=== PATIENT | male | born 1955 | race Caucasian/White ===

== ENCOUNTER 2018-08-12 20:28 | Observation (INO) ==
[2018-08-12] MEDS ORDERED: ASPIRIN PR ONE (21:10)
[2018-08-12] MEDS ORDERED: ASPIRIN PO ONE (21:10)
[2018-08-12 21:21] LABS: BASO# 0.06 X1000 (0.0-0.2); BASO% 0.5 % (0.0-0.8); EOS# 0.25 X1000 (0.0-0.7); EOS% 2.1 % (0.0-10.0); HEMATOCRIT 36.3 % (42.0-52.0); HEMOGLOBIN 11.7 g/dL (14.0-18.0); IMM GRAN# 0.07 X1000 (0.0-0.04); IMM GRAN% 0.6 % (0.0-0.5); LYMPH# 3.52 X1000 (1.2-3.4); LYMPH% 29.4 % (20.5-51.1); MCH 28.3 PG (27-31); MCHC 32.2 g/dL (33-37); MCV 87.9 FL (81-99); MONO# 0.81 X1000 (0.11-0.59); MONO% 6.8 % (1.7-9.3); MPV 10.5 FL (7.4-10.4); NEUT# 7.28 X1000 (1.4-6.5); NEUT% 60.6 % (42.2-75.2); PLT 244 X1000 (130-400); RBC 4.13 XMIL (4.7-6.1); RDW 14.8 % (11.5-14.5); WBC 11.99 X1000 (4.8-10.8)
[2018-08-12 21:29] LABS: INR 1.02; PROTIME 14.2 Seconds (11.0-16.0)
[2018-08-12 21:30] LABS: PTT 30.6 Seconds (22.3-41.8)
--- NOTE | 2018-08-12 21:36 | Diag Imaging Result Doc PS360 ---
CHEST-2 VIEWS - 08/12/2018 INDICATION: chest pain COMPARISON: 09/09/2015 FINDINGS: There is some stable linear atelectasis in one of the lung bases visible only on the lateral view. No infiltrates or edema. Heart size is normal. IMPRESSION: Linear atelectasis in the lung bases. No acute disease. Electronically signed by Navdeep Prabhakar 08/12/2018 9:34 PM
[2018-08-12 21:41] LABS: AGAP 13; ALB/GLOB RATIO 1.5; ALBUMIN 3.8 g/dL (3.5-5.0); ALKALINE PHOSPHATASE 121 U/L (32-122); BUN 8 mg/dL (8-22); CALCIUM 8.6 mg/dL (8.8-10.2); CHLORIDE 102 mmol/L (98-107); COSMO 284; CREATININE 0.6 mg/dL (0.7-1.2); ESTIMATED GFR > 60; GLUCOSE 115 mg/dL (70-104); GOT 15 U/L (10-34); GPT 16 U/L (10-44); POTASSIUM 3.7 mmol/L (3.5-5.1); SODIUM 143 mmol/L (136-145); TCO2 28 mmol/L (25-35); TOTAL BILIRUBIN 0.28 mg/dL (0.20-1.00); TOTAL PROTEIN 6.3 g/dL (6.3-8.3)
[2018-08-13] MEDS ORDERED: NITROGLYCERIN SL PRN (00:38)
[2018-08-13] MEDS ORDERED: ZOFRAN IV PRN (00:38)
[2018-08-13] MEDS ORDERED: TYLENOL PO PRN (00:38)
[2018-08-13] MEDS ORDERED: COREG PO ONE (00:42)
[2018-08-13] MEDS ORDERED: PRINIVIL PO ONE (00:51)
[2018-08-13] MEDS ORDERED: SEROQUEL PO ONE (00:52)
[2018-08-13] MEDS ORDERED: LIPITOR PO ONE (00:52)
[2018-08-13] MEDS ORDERED: FLOMAX PO ONE (00:52)
--- NOTE | 2018-08-13 02:32 | HISTORY AND PHYSICAL ---
PRIMARY CARE PHYSICIAN: Dr. Palomo. CHIEF COMPLAINT: Chest pain. HISTORY OF PRESENTING ILLNESS: A 63-year-old male with a history of hypertension, diabetes mellitus type 2 and hyperlipidemia, who had presented to emergency department 2 days history of having intermittent chest pain. He described it as sharp and stated that he was somewhat nauseated. He states the symptoms were worsening and subsequently he had come to the emergency department. In the ED, he was evaluated and due to his presenting symptoms it was thought that he would need admission for further management. The patient states that he was supposed to have an outpatient stress test. At the time of my examination, he denied any headache, fever, chills, hemoptysis, melena, weight changes, but complained of chest discomfort. PAST MEDICAL HISTORY: Hypertension, hyperlipidemia, diabetes mellitus type 2, gout, BPH and depression. PAST SURGICAL HISTORY: Left knee surgery, cholecystectomy. ALLERGIES: No known drug allergies. CURRENT MEDICATIONS: Metformin 1000 mg p.o. daily, allopurinol 300 mg p.o. daily, Flomax 0.4 mg p.o. daily, lisinopril 20 mg p.o. daily, atorvastatin 40 mg p.o. daily, quetiapine 25 mg p.o. at bedtime Zoloft 50 mg p.o. daily, Lasix 20 mg p.o. daily, Coreg 25 mg p.o. b.i.d., isosorbide mononitrate ER 30 mg p.o. daily, KCl 10 mEq p.o. daily, famotidine 20 mg p.o. daily. SOCIAL HISTORY: No history of smoking, alcohol or illicit drug use. FAMILY HISTORY: No history of coronary artery disease. REVIEW OF SYSTEMS: Fourteen point review of systems as listed in HPI. Other systems negative. PHYSICAL EXAMINATION: GENERAL: Cooperative, friendly male. He is resting comfortably now. VITAL SIGNS: Temperature 98.4 degrees, pulse 70, respiration 19, blood pressure 142/73. HEENT: Atraumatic, normocephalic. Extraocular movements intact. PERRLA. NECK: Supple. CHEST: Chest clear to auscultation. CARDIOVASCULAR: Regular rate and rhythm. ABDOMEN: Soft, positive bowel sounds. EXTREMITIES: Trace edema. NEUROLOGIC: He is awake, alert, oriented x3. GENITOURINARY: No bladder distention. SKIN: Warm. LABORATORIES AND STUDIES: WBC 11.99, hemoglobin 11.7, hematocrit 36.3, platelets 244,000. Sodium 143, potassium 3.7, chloride 102, CO2 is 28, BUN is 8, creatinine 0.6, glucose is 115. Troponin is 0.010. ASSESSMENT: A 63-year-old male with a history of hypertension, diabetes mellitus type 2 and hyperlipidemia, who presented to the emergency department with 2 days history of having intermittent chest pain. We will place the patient in for observation for further evaluation and management. 1. Chest pain, seems atypical. 2. Hypertension. 3. Diabetes mellitus type 2. 4. Hyperlipidemia. PLAN: 1. We will admit patient to medical floor with telemetry. 2. Continue with cardiac workup. Check EKG, serial cardiac enzymes. Have patient continue on aspirin. We will use sublingual nitroglycerin and morphine p.r.n. chest pain. 3. We will consult Cardiology. 4. Monitor blood pressure closely and resume antihypertensive agent. 5. Put patient on glycemic protocol with sliding scale insulin regimen. 6. We will restart other home medications. 7. Put patient on DVT prophylaxis with SCD. 8. We will continue to follow, and reassess and make further recommendation based on patient's clinical course. cc: Cody Damian MD
[2018-08-13] MEDS: PRILOSEC PO SCH (07:00)
[2018-08-13] MEDS: HUMULIN R SUBQ SCH ×4 (07:00→22:09)
--- NOTE | 2018-08-13 08:24 | EKG Report ---
Test Performed on : 08/12/2018 8:50:09 PM Test Reason : chest pain Blood Pressure : / mmHG Vent. Rate : 071 BPM Atrial Rate : 071 BPM P-R Int : 180 ms QRS Dur : 082 ms QT Int : 438 ms P-R-T Axes : 040 -15 174 degrees QTc Int : 475 ms Normal sinus rhythm. Marked ST abnormality, possible inferolateral subendocardial injury Abnormal ECG When compared with ECG of 09-SEP-2015 21:21, ST now depressed in Inferior leads T wave inversion now evident in Inferior leads Inverted T waves have replaced nonspecific T wave abnormality in Lateral leads Unconfirmed Result
[2018-08-13] MEDS: ASPIRIN PO SCH (09:00)
--- NOTE | 2018-08-13 11:37 | EKG Report ---
Test Performed on : 08/13/2018 11:34:08 AM Test Reason : chest pain Blood Pressure : / mmHG Vent. Rate : 065 BPM Atrial Rate : 065 BPM P-R Int : 182 ms QRS Dur : 094 ms QT Int : 458 ms P-R-T Axes : 049 -01 086 degrees QTc Int : 476 ms Sinus rhythm. with frequent premature ventricular complexes. Nonspecific T wave abnormality Prolonged QT Abnormal ECG When compared with ECG of 12-AUG-2018 20:50, (Unconfirmed) premature ventricular complexes. are now present ST no longer depressed in Lateral leads T wave inversion no longer evident in Inferior leads Nonspecific T wave abnormality has replaced inverted T waves in Lateral leads Confirmed by Layo FRANCIS, Marques Tobias ([id number]) on 08/13/2018 6:54:53 PM
[2018-08-13] MEDS ORDERED: LEXISCAN ONE (12:52)
--- NOTE | 2018-08-13 15:37 | CARDIOLOGY CONSULTATION ---
DATE: 08/13/2018 REQUESTING PHYSICIAN: Hospitalist Service. PRIMARY PHYSICIAN: Dr. Betsey Hansen. PRIMARY SENIOR MANUFACTURING SUPERVISOR: Dr. Maldonado. CHIEF COMPLAINT: Chest pain. HISTORY: Mr. Dunn is a 63-year-old male who presented to the emergency room for admission last night at about 9:00 p.m. with sudden onset of chest discomfort that happened at about 7:30 p.m. The pain happened about an hour after he finished eating his regular supper. The pain was very intense, substernal. It appeared to be not worsened by anything he did. There was no nausea associated. There was no definite diaphoresis. Upon presentation, he was found to be hypertensive. He was given some aspirin, lisinopril, and Coreg. His pain is better today. I am seeing him at about 12 noon. Sister is by the bedside. The patient is very hard of hearing. The patient said that he has not experienced a pain like this in a long time. PAST HISTORY: Positive for moderate coronary arteriosclerosis. About a year ago he took a stress test that showed an inferior defect. He was sent to [facility] where they found a 50% LAD stenosis that after further evaluation with fractional flow reserve revealed that it was not significant. He has been advised medical therapy. He does have aortic stenosis. He has frequent PVCs and a bigeminy pattern. This has been noted before. He has question of mitral valve prolapse. He has diabetes mellitus type 2, hyperlipidemia, gout, depression, and obesity. SURGICAL HISTORY: He had knee surgery and cholecystectomy. SOCIAL HISTORY: He is disabled. He has been twice. He has one daughter, 30 years old, lives in [place]. The patient lives by himself. He has issues with hearing and balance. He has to use a walker and a cane at home. Not a smoker, not a drinker. He retired from [employer] in [place]. FAMILY HISTORY: Mother had a stroke. Father just recently of multiple illnesses. ALLERGIES: None. HOME MEDICATIONS: Include allopurinol 300 daily, Lipitor 40 at bedtime, carvedilol 25 twice a day, vitamin D2 one tablet every seven days, Pepcid 20 twice a day, furosemide 20 as needed, Imdur 30 mg in the morning, lisinopril 20 twice a day, metformin 1000 in the morning, potassium chloride 10 mEq in the morning, Seroquel 25 mg at bedtime, sertraline 50 mg twice a day, Flomax 0.4 mg at bedtime. REVIEW OF SYSTEMS: Other than all of the above, nothing new or contributory. Multiple systems were inquired. PHYSICAL EXAMINATION: Vital signs: Blood pressure is 181/73, temperature 98.4 , pulse 87, respirations 18. Weight 278 pounds. General: He is awake, alert, in no distress. HEENT: Unremarkable. Chest: Sounds clear to auscultation and percussion. Cardiac: Heart sounds are regularly irregular. He is in a bigeminy rhythm. He does have a prominent systolic murmur over the aortic area and I believe he has an apical systolic murmur that may represent mitral regurgitation. Both murmurs are 2-3/6 in intensity. Abdomen: Nontender, obese , no masses, no hepatomegaly. Extremities: Showed good pulses, no peripheral edema. Neurologic: Follows commands, moves four extremities. BLOOD WORK: White cell count 11,890, hemoglobin 11.7, hematocrit 36.3. Sodium 143, potassium 3.7, BUN and creatinine normal. proBNP 540. IMAGING: Chest x-ray was reported as linear atelectasis in the lung bases. EKG showed sinus rhythm with nonspecific T wave abnormality in the lateral leads and frequent PVCs like in a bigeminy pattern. IMPRESSION: 1. Patient presented with severe chest pain, possibly cardiac versus noncardiac. 2. Moderate coronary arteriosclerosis diagnosed in 2018. 3. Significant hypertension. 4. Obesity. Body mass index is 39. 5. History of diabetes. 6. History of gout. 7. Ventricular Arrhythmia: bigeminy. likely benign. RECOMMENDATIONS: At this time, we will check an echocardiogram and myocardial perfusion stress test. We will check also some blood cardiac/inflammatory markers and further advice will be forthcoming. So far, the patient has ruled out for myocardial infarction. We really need to optimize the management of his blood pressure. Further advice will be forthcoming. cc: Lloyd Sousa MD [facility]
--- NOTE | 2018-08-13 16:53 | Diag Imaging Result Document ---
PROCEDURE NAME: MYOCARDIAL PERF SCAN, STR/REST - 08/13/2018 LEXISCAN SESTAMIBI INTERPRETATION: SUMMARY: The patient was administered 15.6 mCi of technetium-99m sestamibi, after which resting cardiac images were obtained. The patient subsequently was stressed using a walking Lexiscan protocol. The patient was administered Lexiscan 0.4 mg intravenously. The heart rate went from 68 beats per minute to 93 beats per minute. The blood pressure went from 162/93 to 165/90. With Lexiscan, the patient denied chest discomfort. Following the administration of Lexiscan, the patient was administered 45.9 mCi of technetium 99-m sestamibi, after which gated stress cardiac images were obtained. Baseline ECG demonstrates sinus rhythm and moderate ventricular ectopy. Nonspecific ST and T-wave abnormality demonstrated. With Lexiscan, baseline ST and T-wave abnormality did not change significantly. SPECT images were reconstructed in the short, horizontal long, vertical long axes. Review of these images demonstrated a medium-size region of mild to moderately diminished activity in the inferior wall on stress images, which appears similar on resting images. No significant reversibility is evident. Gated images demonstrate a calculated left ventricular ejection fraction of 62% with symmetrical wall motion/thickening. CONCLUSIONS: 1. Adequate stress with walking Lexiscan protocol. 2. Clinically negative for chest pain. 3. Electrocardiographically baseline ST and T-wave abnormality did not change significantly with Lexiscan. Moderate ventricular ectopy observed. 4. Lexiscan sestamibi images demonstrate fixed medium-sized area of mild to moderate reduced activity in the basal and mid inferior wall with corresponding preserved regional wall motion. This is most compatible with soft tissue/diaphragm attenuation artifact in this obese individual. There is no convincing scintigraphic evidence of inducible myocardial ischemia. Normal left ventricular systolic function demonstrated. cc: MD Lloyd Caballero MD
[2018-08-13] MEDS ORDERED: VITAMIN D PO SCH (18:15)
[2018-08-13] MEDS ORDERED: APRESOLINE IV PRN (18:27)
--- NOTE | 2018-08-13 19:04 | PROVIDER DOCUMENTATION ---
This chart was entered by Lamine Quevedo Scribe, acting as scribe for Ai Bethea MD. HPI-Chest Pain <Tom Swartz - Last Filed: 08/13/18 18:59> - General Source: patient - History of Present Illness-CP Location: reports: substernal Chest Pain Radiation: reports: no radiation Quality of Pain: reports: dull Severity in ED: mild Onset/Duration: 2 days ago Timing: still present Context/Activities at Onset: reports: none (Sister reports pt is not active, very sedentary.) Modifying Factors: improves with: nothing Associated Symptoms: denies: abdominal pain, back pain, diaphoresis, dizziness, shortness of breath Prior Chest Pain/Cardiac Workup: reports: cardiac cath Similar Symptoms Previously?: No Recently Seen Here or By Another Healthcare Provider: Yes (benny Maldonado) <Ai Bethea - Last Filed: 08/13/18 19:04> - General Chief Complaint: Chest Pain Stated Complaint: cp Time Seen by Provider: 08/12/18 21:54 Allergies/Adverse Reactions: Patient Allergies Allergy/AdvReac Type Severity Reaction Status Date / Time No Known Allergies Allergy Verified 09/09/15 22:41 Home Medications: Home Medication List Medication Instructions Recorded Confirmed Last Taken Type ATORVAstatin [Lipitor] 40 mg PO QHS 08/13/18 08/13/18 Unknown History Allopurinol [Zyloprim] 300 mg PO QAM 08/13/18 08/13/18 Unknown History Carvedilol [Coreg] 25 mg PO BID 08/13/18 08/13/18 Unknown History Ergocalciferol (Vitamin D2) 1 each PO Q7D 08/13/18 08/13/18 Unknown History [Vitamin D2] Famotidine [Pepcid] 20 mg PO BID 08/13/18 08/13/18 Unknown History Furosemide [Lasix] 20 mg PO PRN PRN 08/13/18 08/13/18 Unknown History Isosorbide Mononitrate [Isosorbide 30 mg PO QAM 08/13/18 08/13/18 Unknown History Mononitrate ER] Lisinopril 20 mg PO BID 08/13/18 08/13/18 Unknown History Metformin [Glucophage] 1,000 mg PO QAM 08/13/18 08/13/18 Unknown History Potassium Chloride [Klor-Con 10] 10 meq PO QAM 08/13/18 08/13/18 Unknown History Quetiapine Fumarate [Seroquel] 25 mg PO QHS 08/13/18 08/13/18 Unknown History Sertraline [Zoloft] 50 mg PO BID 08/13/18 08/13/18 Unknown History Tamsulosin [Flomax] 0.4 mg PO QHS 08/13/18 08/13/18 Unknown History - History of Present Illness-CP Nature of Presenting Problem: Pt is a 63 y/o M comes to the ED by EMS for chest pain. He reports he has been hurting for 2 days and he called EMS. The sister has power attorney at law for pt. She reports the past couple weeks pt blood pressure has been elevated and she suspects some of it is from loss of father. She reports he has and irreegulr rhythm with a chemical stress test in 12 days and is being followed by Dr Maldonado [employer] Operator. She says about 18 months of go pt had a heart ath showing only 40% blockage. Pt reports he is chest pain free now. (Lamine Quevedo) Pt is a 63 y/o M comes to the ED by EMS for chest pain. He reports he has been hurting for 2 days and he called EMS. The sister has power attorney at law for pt. She reports the past couple weeks pt blood pressure has been elevated and she suspects some of it is from loss of father. She reports he has and irreegulr rhythm with a chemical stress test in 12 days and is being followed by Dr Maldonado [employer] Operator. She says about 18 months of go pt had a heart ath showing only 40% blockage. Pt reports he is chest pain free now. (Ai Bethea) Review of Systems - Adult - REVIEW OF SYSTEMS - ADULT Constitutional: denies: chills, fever Eyes: reports: no symptoms reported Ears, Nose, Mouth & Throat: reports: no symptoms reported Cardiovascular: reports: chest pain. denies: edema, palpitations Respiratory: denies: cough, shortness of breath, wheezing Gastrointestinal: denies: abdominal pain, nausea, vomiting Genitourinary: reports: no symptoms reported Musculoskeletal: denies: bone pain, back pain, neck pain Integumentary: reports: no symptoms reported Neurological: denies: dizziness/vertigo, headache/migraines Psychiatric: reports: no symptoms reported Endocrine: reports: no symptoms reported Hematologic/Lymphatic: reports: no symptoms reported Allergic/Immunologic: reports: no symptoms reported All Other Systems: Reviewed and Negative <Ai Bethea - Last Filed: 08/13/18 19:04> Past History - Adult - PAST MEDICAL HISTORY-ADULT Review of Records: reports: Old Records Reviewed, Nursing Assessment Review, Medications Reviewed - SOCIAL HISTORY Smoking: non-smoker Living Situation: alone <Gali Betheatierney Thorne - Last Filed: 08/13/18 19:04> Physical Exam-General - PHYSICAL EXAM-ADULT Initial Vital Signs Reviewed: Yes - CONSTITUTIONAL General Appearance: appears well, alert, no apparent distress, obese - EYES Eyes: PERRL/EOMI, pink conjunctivae - HEAD, EARS, NOSE, MOUTH & THROAT HENMT: moist mucous membranes, normal ENT inspection, pharynx normal - NECK Neck: non-tender, full range of motion, supple, normal inspection - RESPIRATORY Respiratory: lungs clear, normal breath sounds, no pleuratic chest pain, no respiratory distress, no accessory muscle use - CARDIOVASCULAR Cardiovascular: normal peripheral pulses, regular rate, rhythm - GASTROINTESTINAL (ABDOMEN) Abdominal Exam: normal bowel sounds, non tender, soft - MUSCULOSKELETAL Back Exam: no CVA tenderness, no vertebral tenderness Extremity: normal range of motion, non-tender, normal gait, normal inspection - SKIN Integumentary: normal color, normal turgor, warm/dry - NEUROLOGIC Neurologic: grossly normal, no motor/sensory deficits - PSYCHIATRIC Psych/Mental Status: normal mood/affect, normal thought content, normal thought process, oriented x 3 <Gali Betheatierney Thorne - Last Filed: 08/13/18 19:04> Progress - PLAN OF CARE/RESULTS Result Diagrams: 08/12/18 20:59 08/12/18 20:59 <Tom Swartz - Last Filed: 08/13/18 18:59> - PLAN OF CARE/RESULTS Result Diagrams: 08/12/18 20:59 08/12/18 20:59 - EKG 1 Time of EKG reading by physician:: 20:50 EKG Read and Signed by:: Ai Bethea EKG Interpretation (*Must complete 3 of following elements*): Abnormal Rate: 71 Rhythm: NSR Comments: marked ST abnormality - XRAY 1 XRAY Study: Chest Impression: Normal (INDICATION: chest pain COMPARISON: 09/09/2015 FINDINGS: There is some stable linear atelectasis in one of the lung bases visible only on the lateral view. No infiltrates or edema. Heart size is normal. IMPRESSION : Linear atelectasis in the lung bases. No acute disease. Electronically signed by Navdeep Prabhakar 08/12/2018 9:34 PM) - CONSULTS/PCP/HOSPITALIST Notification #1 *Consult/PCP/Hospitalist*: Hospitalist- Dr Damian Time Discussed: 23:20 Reason/Comments: Admission Consult Disposition: Admit (accepts for stress test tomorrow) <[place] - Last Filed: 08/13/18 19:04> - PLAN OF CARE/RESULTS Progress/Plan/Lab Results: Laboratory Results - last 24 hr 08/12/18 08/12/18 08/12/18 20:59 20:59 20:59 WBC 11.99 H RBC 4.13 L Hgb 11.7 L Hct 36.3 L MCV 87.9 MCH 28.3 MCHC 32.2 L RDW Std Deviation 14.8 H Plt Count 244 MPV 10.5 H Immature Gran % (Auto) 0.6 H Neut % (Auto) 60.6 Lymph % (Auto) 29.4 [place] % (Auto) 6.8 Eos % (Auto) 2.1 Baso % (Auto) 0.5 Immature Gran # (Auto) 0.07 H Neut # (Auto) 7.28 H Lymph # (Auto) 3.52 H [place] # (Auto) 0.81 H Eos # (Auto) 0.25 Baso # (Auto) 0.06 PT INR PTT (Actin FS) Sodium 143 Potassium 3.7 Chloride 102 Carbon Dioxide 28 Anion Gap 13 BUN 8 Creatinine 0.6 L Estimated GFR/1.73 m2 > 60 BUN/Creatinine Ratio 13 Glucose 115 H Calculated Osmolality 284 Calcium 8.6 L Total Bilirubin 0.28 AST 15 ALT 16 Alkaline Phosphatase 121 Creatine Kinase 87 Troponin T Dou-B-Zzzvbyqplqg Pept Total Protein 6.3 Albumin 3.8 Globulin 2.5 Albumin/Globulin Ratio 1.5 08/12/18 08/12/18 08/12/18 20:59 20:59 20:59 WBC RBC Hgb Hct MCV MCH MCHC RDW Std Deviation Plt Count MPV Immature Gran % (Auto) Neut % (Auto) Lymph % (Auto) [place] % (Auto) Eos % (Auto) Baso % (Auto) Immature Gran # (Auto) Neut # (Auto) Lymph # (Auto) [place] # (Auto) Eos # (Auto) Baso # (Auto) PT 14.2 INR 1.02 PTT (Actin FS) 30.6 Sodium Potassium Chloride Carbon Dioxide Anion Gap BUN Creatinine Estimated GFR/1.73 m2 BUN/Creatinine Ratio Glucose Calculated Osmolality Calcium Total Bilirubin AST ALT Alkaline Phosphatase Creatine Kinase Troponin T < 0.010 Ptj-K-Eomumzmeelu Pept 540 H Total Protein Albumin Globulin Albumin/Globulin Ratio Orders Category Date Time Status Admit [facility] Routine AdmDCTranf 08/13/18 00:38 Active Apply Mechanical Device [QM] ORDERED Care 08/13/18 00:38 Active Cardiac Monitoring DIRECTED Care 08/12/18 21:11 Completed FSBS/Accucheck Result AC + HS Care 08/13/18 00:38 Active Notify MD if DIRECTED Care 08/13/18 00:38 Active Nursing- MD Consult Request ROUTINE Care 08/13/18 00:38 Active Oxygen Therapy- ED Nursing DIRECTED Care 08/12/18 21:11 Completed Saline Loc DIRECTED Care 08/13/18 00:38 Active Saline Loc NOW Care 08/12/18 21:11 Completed Vital Signs Order Q 4-HR ASSESS Care 08/13/18 00:38 Active Z-Document. for Tele Applied ORDERED Care 08/13/18 00:38 Active Physician/Provider Consults Routine Cons 08/13/18 00:38 Ordered NPO Diet 08/13/18 00:38 Active CHEST-2 VIEWS [RAD] Stat Exams 08/12/18 21:11 Completed CBC WITH ELECTRONIC DIFF [HEME] Routine Lab 08/14/18 06:00 Ordered CBC WITH ELECTRONIC DIFF [HEME] Stat Lab 08/12/18 20:59 Completed CK PROFILE [SP CHEM] Q8H Lab 08/13/18 01:08 Completed CK PROFILE [SP CHEM] Q8H Lab 08/13/18 08:24 Completed CK PROFILE [SP CHEM] Q8H Lab 08/13/18 16:48 Completed CK PROFILE [SP CHEM] Stat Lab 08/12/18 20:59 Completed COMPREHENSIVE METABOLIC PANEL [CHEM] Stat Lab 08/12/18 20:59 Completed LIPID PROFILE W/CALC LDL [LIPIDS] Routine Lab 08/14/18 06:00 Ordered PRO B-NATRIURETIC PEPTIDE Stat Lab 08/12/18 20:59 Completed PROTIME WITH INR [COAG] Stat Lab 08/12/18 20:59 Completed PTT [COAG] Stat Lab 08/12/18 20:59 Completed TROPONIN T Q8H Lab 08/13/18 01:08 Completed TROPONIN T Q8H Lab 08/13/18 08:24 Completed TROPONIN T Q8H Lab 08/13/18 16:48 Completed TROPONIN T Stat Lab 08/12/18 20:59 Completed Acetaminophen [Tylenol] Med 08/13/18 00:38 Active 650 mg PO Q6H PRN PRN Aspirin Med 08/12/18 21:10 Discontinued 300 mg MD NOW ONE Aspirin Med 08/13/18 09:00 Active 325 mg PO DAILY Aspirin Med 08/12/18 21:10 Discontinued 325 mg PO NOW ONE Insulin Human Regular [Humulin R] Med 08/13/18 07:00 Active See Protocol SUBQ 0700,1100,1600,2100 Nitroglycerin Sl [Nitroglycerin] Med 08/13/18 00:38 Active 0.4 mg SL Q5M PRN PRN Omeprazole [Prilosec] Med 08/13/18 07:00 Active 20 mg PO DAILY@0700 Ondansetron [Zofran] Med 08/13/18 00:38 Active 4 mg IV Q4H PRN PRN Oxygen Device Routine Oth 08/13/18 00:38 Completed Telemetry [OM.EQ] Routine Oth 08/13/18 00:38 Active EKG [EKG] Stat Ther 08/12/18 21:11 Draft Transfer/Admit Order [TRANSFER] Routine Transfer 08/13/18 00:03 Completed Departure - Critical Care Note This patient required my direct & personal management of CC.: No <Tom Swartz - Last Filed: 08/13/18 18:59> - Departure Date of Disposition Decision: 08/12/18 Time of Disposition Decision: 23:22 Certified Medical Emergency: Emergent - Critical Care Note This patient required my direct & personal management of CC.: No <Ai Bethea - Last Filed: 08/13/18 19:04> - Departure DIAGNOSIS: Chest pain Disposition: ADMITTED INPATIENT 09 Condition: Stable Attestation - Physician/ HAYLIE Attestation Patient care was provided by Advanced Practice Provider:: No The physician spent face to face time with patient:: Yes Advanced Practice Provider documentation review:: Supervising physician onsite and consulted in the evaluation and care of this patient. The physician did have a face to face encounter with the patient. <Tom Swartz - Last Filed: 08/13/18 18:59> - Physician/ HAYLIE Attestation Patient care was provided by Advanced Practice Provider:: No The physician spent face to face time with patient:: Yes Advanced Practice Provider documentation review:: Supervising physician onsite and consulted in the evaluation and care of this patient. The physician did have a face to face encounter with the patient. <Ai Bethea - Last Filed: 08/13/18 19:04> This chart was documented by the indicated scribe, (Lamine Quevedo Scribe) and accurately reflects the services I performed and decisions made by [place] Mai Huu, MD, as attested by the provider's signature.
[2018-08-13] MEDS: COREG PO SCH (20:05)
[2018-08-13] MEDS: PRINIVIL PO SCH (20:06)
--- NOTE | 2018-08-13 20:27 | PROGRESS NOTE ---
DATE: 08/13/2018 SUBJECTIVE: At this moment, this patient is not complaining of chest pain, but he seems to be anxious. His blood pressure has been elevated, mostly in the 190s. I will add hydralazine as needed for this patient. He came in with chest pain which probably is atypical. We did a stress test that showed an adequate stress with walking Lexiscan protocol, clinically negative for chest pain, electrocardiographically baseline ST and T-wave abnormality no change significantly with the Lexiscan, moderate ventricular ectopy observed. The Lexiscan sestamibi images demonstrated a fixed medium-sized area of mild to moderate reduced activity in the basal and mid-inferior wall with corresponding preserved regional wall motion. This is most compatible with soft tissue attenuation artifact in this obese patient. There is no convincing scintigraphic evidence of inducible myocardial ischemia, and there is a left ventricular systolic function that is normal demonstrated. Pending echocardiogram at this moment. Like I mentioned before, his blood pressure has been elevated. Family members at the bedside, and I have placed this patient back on his home medications, including atorvastatin, Seroquel, tamsulosin, allopurinol, famotidine, hydralazine metformin, sertraline, carvedilol, isosorbide mononitrate, lisinopril twice a day. We will monitor this patient closely. Cardiology on board. OBJECTIVE: Vital Signs: Temperature 97.9, pulse 66, respiratory rate 20, blood pressure 189/95, oxygen saturation 97% on 2 L of nasal cannula. HEENT: Head normocephalic. No trauma. PERRLA. Neck: Supple. I cannot see JVD because of his neck size. Central trachea. Chest: Clear to auscultation. No wheezing. No rales. Cardiovascular: RRR. Abdomen: Soft , nontender, nondistended. No hepatosplenomegaly. Obese, protuberant. Extremities: No edema. No clubbing. No cyanosis. Neurological: The patient is alert and oriented x3. He looks anxious. No focal deficits. DIAGNOSTIC STUDIES: Laboratory from yesterday: WBC 11.9, hemoglobin 11.7, hematocrit 36.3, platelet count 244,000. Normal coagulation studies. Creatinine 0.6, sodium 143 , potassium 3.2, chloride 102, bicarbonate 28, BUN 8, glucose 115. Troponin negative x3. IV albumin 3.8. ASSESSMENT AND PLAN: 1. Chest pain, likely atypical. Stress test negative for any acute ischemia issue/abnormality. Pending echocardiogram. I have placed this patient back on his home medications. Cardiology Department following this patient. 2. Hypertension, uncontrolled. It looks like he did not receive the morning dose of his medications. I have placed this patient back on his home medication, and I will add hydralazine as needed. 3. Type 2 diabetes, stable. Continue with the same management. 4. Hyperlipidemia. Continue with statins. 5. Morbid obesity with a Body Mass Index (BMI) of 38.8. Aware. Diet and exercise have been discussed. cc: Braulio Van MD MTDD
[2018-08-13] MEDS ORDERED: LIPITOR PO SCH (21:00)
[2018-08-13] MEDS ORDERED: SEROQUEL PO SCH (21:00)
[2018-08-13] MEDS ORDERED: FLOMAX PO SCH (21:00)
[2018-08-13] MEDS: ZOLOFT PO SCH (22:08)
[2018-08-13] MEDS: PEPCID PO SCH (22:09)
--- NOTE | 2018-08-14 00:08 | ECHO REPORT ---
ORDER DATE: 08/13/2018 MEASUREMENTS: Left ventricular end-diastolic diameter 4.8, end systolic diameter 3.3, septal thickness 1.3, posterior wall thickness 1.3, aortic root 3.2, left atrium 5.5. SUMMARY: 1. Technically difficult study due to limited acoustic window quality. Intravenous echocardiogram contrast agent Definity was utilized to enhance endocardial definition. 2. Fibrocalcific changes of the aortic valve demonstrated. The aortic valve is not well-imaged. Peak gradient across the aortic valve is 43 mmHg, with a mean gradient of 26 mmHg. The calculated aortic valve area by Doppler is 1.2 cm sq, suggesting moderate aortic stenosis. There is trace aortic regurgitation. Mitral and tricuspid valves are without evidence of structural abnormality, while pulmonic valve is not well-demonstrated. There is trace mitral regurgitation and trace tricuspid regurgitation. The aortic root is normal in size. 3. Normal left ventricular chamber size, with mild concentric left hypertrophy is demonstrated. Estimated left ventricular ejection fraction appears to be at least 60%. No regional wall motion abnormalities evident. Left atrium is moderately enlarged. The right atrium and right ventricle are normal in size, with grossly preserved right ventricular systolic function. 4. No pericardial effusion. 5. Appearance of inferior vena cava suggests normal central venous pressure. CONCLUSIONS: 1. Technically difficult study. 2. Moderate aortic stenosis, with trace aortic regurgitation. 3. Trace mitral regurgitation and trace tricuspid regurgitation. 4. Mild concentric left hypertrophy, with estimated left ventricular ejection fraction at least 60%. 5. Moderate left atrial enlargement. cc: MD Kimberly Caballero PA
[2018-08-14] MEDS: PRILOSEC PO SCH (06:15)
[2018-08-14] MEDS: HUMULIN R SUBQ SCH ×2 (06:15→10:17)
[2018-08-14 07:47] LABS: BASO# 0.03 X1000 (0.0-0.2); BASO% 0.3 % (0.0-0.8); EOS# 0.22 X1000 (0.0-0.7); HEMATOCRIT 36.5 % (42.0-52.0); HEMOGLOBIN 11.8 g/dL (14.0-18.0); IMM GRAN# 0.02 X1000 (0.0-0.04); IMM GRAN% 0.2 % (0.0-0.5); LYMPH# 2.79 X1000 (1.2-3.4); LYMPH% 25.5 % (20.5-51.1); MCH 28.6 PG (27-31); MCHC 32.3 g/dL (33-37); MCV 88.6 FL (81-99); MONO# 0.78 X1000 (0.11-0.59); MONO% 7.1 % (1.7-9.3); MPV 10.6 FL (7.4-10.4); NEUT# 7.09 X1000 (1.4-6.5); NEUT% 64.9 % (42.2-75.2); PLT 238 X1000 (130-400); RBC 4.12 XMIL (4.7-6.1); RDW 14.8 % (11.5-14.5); WBC 10.93 X1000 (4.8-10.8)
[2018-08-14 08:06] LABS: CHOLESTEROL 110 mg/dL (0-200); HDL 30 mg/dL (35-55); LDL 51 mg/dL; TRIGLYCERIDES 146 mg/dL (39-160); VLDL 29 mg/dL
[2018-08-14 08:07] LABS: AGAP 12; ALB/GLOB RATIO 1.1; ALBUMIN 3.3 g/dL (3.5-5.0); ALKALINE PHOSPHATASE 120 U/L (32-122); BUN 11 mg/dL (8-22); CALCIUM 8.7 mg/dL (8.8-10.2); CHLORIDE 102 mmol/L (98-107); COSMO 283; CREATININE 0.6 mg/dL (0.7-1.2); ESTIMATED GFR > 60; GLUCOSE 116 mg/dL (70-104); GOT 15 U/L (10-34); GPT 16 U/L (10-44); POTASSIUM 3.4 mmol/L (3.5-5.1); SODIUM 142 mmol/L (136-145); TCO2 28 mmol/L (25-35); TOTAL BILIRUBIN 0.41 mg/dL (0.20-1.00); TOTAL PROTEIN 6.4 g/dL (6.3-8.3)
[2018-08-14] MEDS: ZOLOFT PO SCH (08:30)
[2018-08-14] MEDS: COREG PO SCH (08:31)
[2018-08-14] MEDS: ASPIRIN PO SCH (08:31)
[2018-08-14] MEDS: PEPCID PO SCH (08:31)
[2018-08-14] MEDS: PRINIVIL PO SCH (08:31)
[2018-08-14] MEDS ORDERED: ZYLOPRIM PO SCH (09:00)
[2018-08-14] MEDS ORDERED: IMDUR PO SCH (09:00)
[2018-08-14] MEDS ORDERED: GLUCOPHAGE PO SCH (09:00)
[2018-08-14 11:13] VITALS: BP 111/61
--- NOTE | 2018-08-16 00:39 | DISCHARGE SUMMARY ---
ADMISSION DATE: 08/13/2018 DISCHARGE DATE: 08/14/2018 DISCHARGE DIAGNOSIS: 1. Atypical chest pain. 2. Hypertension, uncontrolled. 3. Type 2 diabetes. 4. Hyperlipidemia. 5. Morbid obesity with a body mass index of 39.5. HOSPITAL COURSE: 63-year-old male with a past medical history of diabetes, hyperlipidemia, hypertension presented to emergency department with 2 days history of intermittent chest pain admitted on 08/13/2018, he described it as a sharp and he was feeling somewhat nauseated, he states the symptoms were worsening an that is why he decided to come to emergency department, at the moment of the physical exam he denied any headache, fever chills, hemoptysis, melena, weight changes but he was complaining of chest discomfort. Cardiology Department was consulted and they have decided to do a stress test which showed adequate stress with walking Lexiscan protocol, clinically negative for chest pain, electrocardiographically baseline ST and T- wave abnormality did not change significantly with the Lexiscan, Lexiscan sestamibi images demonstrated fixed medium size area with to moderate reduced activity in the basal and mid inferior wall with corresponding reserved regional wall motion and this is most likely compatible with soft tissue/diaphragm attenuation artifact . The patient was admitted the medical floor, he was feeling really anxious even after the procedure and even though we explained to him that the procedure and/or stress test was completely normal we put him back on his home medications and the blood pressure was elevated yesterday in the afternoon but during the night the blood pressure stabilized . Today this patient is completely asymptomatic, tolerating p.o., ambulating, no chest pain at all this is why we decided to discharge this patient with an active followup with Dr. 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 OBJECTIVE: Vital Signs: Temperature 97.7 degrees, pulse 58, respiratory rate 20, blood pressure 111/61, oxygen saturation 96 on room air. HEENT: Head normocephalic. No trauma. PERRLA. Neck: Supple. No JVD. No masses. Central trachea. Chest: Clear to auscultation. No wheezing, no rales. Abdomen: Soft, nontender, nondistended. No hepatosplenomegaly. Extremities: No edema, no clubbing, no cyanosis. Neurologic: The patient is alert and oriented x3, no focal deficits. LABORATORY: WBC 10.9, hemoglobin 11.8, hematocrit 36.5, platelets 238,000, sodium 142, potassium 3.4, chloride 102, bicarbonate 28, BUN 11, creatinine 0.6, glucose 116, calcium 8.7, albumin 3.3. DISCHARGE MEDICATIONS: Tamsulosin 0.4 mg p.o. at bedtime, sertraline 50 mg p.o. b.i.d., Seroquel at bedtime, potassium chloride 10 mEq p.o. q.a.m., metformin 1000 mg p.o. q.a.m., lisinopril 20 mg p.o. b.i.d., isosorbide mononitrate 30 mg p.o. q.a.m., furosemide 20 mg p.o. as needed, famotidine 20 mg p.o. b.i.d., vitamin D2 1 tablet p.o. every 7 days, carvedilol 25 mg p.o. b.i.d., allopurinol 300 mg p.o. q.a.m. and Lipitor 40 mg p.o. at bedtime. TIME SPENT: 35 minutes. cc: Braulio Van MD MTDD
== END 2018-08-14 15:31 | disposition home or self-care (01) ==
LOC: SUPCPDRO → ED 20:28 → EDIPHOLD 20:28 → SUATTDRO 08-13 00:18 → 3N 08-13 20:12
PROVIDERS: ATTEND Internal Medicine
CPT/HCPCS: 71020; 71046; 78452; 80053; 80061; 82550; 82948; 83880; 84484; 85025; 85610; 85730; 93005; 93010; 93017; 93306; 94761; 96374; 99285; A9270; A9500; C8929; J0360; J2785; Q9957; XXXXX

== ENCOUNTER 2019-09-26 03:53 | Inpatient (IN) ==
--- NOTE | 2019-09-26 04:38 | PROVIDER DOCUMENTATION ---
HPI-Respiratory General - General Chief Complaint: Shortness of Breath Stated Complaint: respiratory distress Time Seen by Provider: 09/26/19 04:28 Source: patient, family Allergies/Adverse Reactions: Patient Allergies Allergy/AdvReac Type Severity Reaction Status Date / Time No Known Allergies Allergy Verified 09/26/19 04:39 Home Medications: Home Medication List Medication Instructions Recorded Confirmed Last Taken Type ATORVAstatin [Lipitor] 40 mg PO QHS 08/13/18 09/26/19 Unknown History Allopurinol [Zyloprim] 300 mg PO QAM 08/13/18 09/26/19 Unknown History Carvedilol [Coreg] 25 mg PO BID 08/13/18 09/26/19 Unknown History Ergocalciferol (Vitamin D2) 1 each PO Q7D 08/13/18 09/26/19 Unknown History [Vitamin D2] Famotidine [Pepcid] 20 mg PO BID 08/13/18 09/26/19 Unknown History Furosemide [Lasix] 20 mg PO PRN PRN 08/13/18 09/26/19 Unknown History Isosorbide Mononitrate [Isosorbide 30 mg PO QAM 08/13/18 09/26/19 Unknown History Mononitrate ER] Lisinopril 20 mg PO BID 08/13/18 09/26/19 Unknown History Metformin [Glucophage] 1,000 mg PO QAM 08/13/18 09/26/19 Unknown History Potassium Chloride [Klor-Con 10] 10 meq PO QAM 08/13/18 09/26/19 Unknown History Quetiapine Fumarate [Seroquel] 25 mg PO QHS 08/13/18 09/26/19 Unknown History Sertraline [Zoloft] 50 mg PO BID 08/13/18 09/26/19 Unknown History Tamsulosin [Flomax] 0.4 mg PO QHS 08/13/18 09/26/19 Unknown History Ondansetron HCl [Zofran] 4 mg PO Q4H PRN PRN #20 tab 08/16/19 09/26/19 Unknown Rx - History of Present Illness-Resp Nature of Presenting Problem: Patient had a colonoscopy last and has done fine. He was out and about yesterday without problems. Around 3 am today he awoke short of breath Quality of Pain: reports: none Severity in ED: reports: moderate Onset/Duration: reports: just prior to arrival Timing: reports: still present Context: denies: recent foreign travel, insect bite (possible tick), recent chemotherapy, multiple patients with similar complaints, recent URI, out of meds, sports/exercise, aspiration/choking, other Exposure: reports: unknown cause Cough Quality/Degree: reports: no cough Episode Frequency: no prior episodes Current Respiratory Medication Therapy: Initiated none Modifying Factors: improves with: nothing Associated Symptoms: reports: hyperventilating, short of breath, sweaty Similar Symptoms Previously?: No Recently seen or treated by another doctor?: No Review of Systems - Adult - REVIEW OF SYSTEMS - ADULT Constitutional: reports: no symptoms reported Eyes: reports: no symptoms reported Ears, Nose, Mouth & Throat: reports: no symptoms reported Cardiovascular: reports: no symptoms reported Respiratory: reports: see HPI Gastrointestinal: reports: see HPI Genitourinary: reports: no symptoms reported Musculoskeletal: reports: no symptoms reported Integumentary: reports: no symptoms reported Neurological: reports: no symptoms reported Psychiatric: reports: no symptoms reported Endocrine: reports: no symptoms reported Past History - Adult - PAST MEDICAL HISTORY-ADULT Review of Records: reports: Nursing Assessment Review Major Childhood Illnesses: reports: denies history Cardiovascular: reports: CHF, HTN Respiratory: reports: denies history Gastrointestinal: reports: denies history Obstetrical/Gynecological: reports: denies history Genitourinary: reports: denies history Musculoskeletal: reports: denies history Neurological: reports: denies history Psychiatric: reports: depression Endocrine/Immune: reports: denies history Other Conditions: reports: denies history - PRIOR SURGERIES/PROCEDURES Surgical/Procedure History: reports: cholecystectomy - IMMUNIZATION STATUS Childhood Immunizations: See Nurse Assessment Flu Vaccine: See Nurse Assessment - FAMILY HISTORY Family History: reviewed, not pertinent Physical Exam-General - CONSTITUTIONAL General Appearance: appears well, alert, mild distress, obese - EYES Eyes: PERRL/EOMI, pink conjunctivae - HEAD, EARS, NOSE, MOUTH & THROAT HENMT: normocephalic/atraumatic, moist mucous membranes, normal ENT inspection - NECK Neck: non-tender, full range of motion, supple - RESPIRATORY Respiratory: chest non-tender, lungs clear, wheezing - CARDIOVASCULAR Cardiovascular: normal peripheral pulses, regular rate, rhythm, no edema, no gallop, no murmur - GASTROINTESTINAL (ABDOMEN) Abdominal Exam: normal bowel sounds, non tender, soft - LYMPHATIC Lymphatic: no adenopathy - MUSCULOSKELETAL Back Exam: normal inspection, no CVA tenderness Extremity: normal range of motion, non-tender - SKIN Integumentary: normal color, normal turgor, diaphoresis - NEUROLOGIC Neurologic: grossly normal - PSYCHIATRIC Psych/Mental Status: normal mood/affect, normal thought content Progress - PLAN OF CARE/RESULTS Progress/Plan/Lab Results: Vital Signs - 8 hr 09/26/19 04:15 Temperature 97.8 F Pulse Rate 86 Respiratory Rate 28 H Blood Pressure 166/90 O2 Sat by Pulse Oximetry 100 Orders Category Date Time Status Cardiac Monitoring NOW Care 09/26/19 04:26 Active IV Insertion NOW Care 09/26/19 04:26 Active Notify Provider of NEWS Score NOW Care 09/26/19 04:26 Active CHEST-1 VIEW [RAD] Stat Exams 09/26/19 04:26 Ordered BLOOD CULTURE [BLDCUL] Stat Lab 09/26/19 04:28 Ordered CBC WITH DIFF [HEME] Stat Lab 09/26/19 04:10 Results CK PROFILE [SP CHEM] Stat Lab 09/26/19 04:10 Received COMPREHENSIVE METABOLIC PANEL [CHEM] Stat Lab 09/26/19 04:10 Received LACTATE, PLASMA [CHEM] Lab 09/26/19 07:30 Uncollected LACTATE, PLASMA [CHEM] Lab 09/26/19 10:30 Uncollected LACTATE, PLASMA [CHEM] Q3H Lab 09/26/19 04:10 Received PROTIME WITH INR [COAG] Stat Lab 09/26/19 04:10 Received PTT [COAG] Stat Lab 09/26/19 04:10 Received TROPONIN T HIGH SENSITIVITY Stat Lab 09/26/19 04:10 Received URINALYSIS W/POSS RFLX CULT [URINALYSIS] Stat Lab 09/26/19 04:26 Uncollected O2 Per Protocol Stat Oth 09/26/19 04:26 Active EKG [EKG] Stat Ther 09/26/19 04:30 Ordered Result Diagrams: 09/26/19 04:10 09/26/19 04:10 - EKG 1 Time of EKG reading by physician:: 04:39 EKG Interpretation (*Must complete 3 of following elements*): Abnormal Rate: 83 QRS: LBB ST Wave: non-specific ST changes - XRAY 1 XRAY Study: Chest Impression: See EMR Report - CONSULTS/PCP/HOSPITALIST Notification #1 *Consult/PCP/Hospitalist*: dr coronado Time Discussed: :01 Consult Disposition: Admit Departure - Departure Date of Disposition Decision: 09/26/19 Time of Disposition Decision: 09:01 DIAGNOSIS: Pneumonia Qualifiers: Pneumonia type: due to unspecified organism Laterality: bilateral Lung location: lower lobe of lung Qualified Code(s): J18.1 - Lobar pneumonia, unspecified organism Fluid overload Qualifiers: Hypervolemia type: unspecified Qualified Code(s): E87.70 - Fluid overload, unspecified Disposition: ADMITTED INPATIENT 09 Certified Medical Emergency: Emergent Condition: Fair Referrals and Follow-Ups: Alex Coronado Jr, MD [Primary Care Provider] - - Critical Care Note This patient required my direct & personal management of CC.: No Attestation - Physician/ HAYLIE Attestation The physician spent face to face time with patient:: Yes Advanced Practice Provider documentation review:: Supervising physician onsite and consulted in the evaluation and care of this patient. The physician did have a face to face encounter with the patient.
[2019-09-26 04:46] LABS: BASO# 0.03 X1000 (0.0-0.2); BASO% 0.3 % (0.0-0.8); EOS# 0.25 X1000 (0.0-0.7); EOS% 2.2 % (0.0-10.0); HEMATOCRIT 38.6 % (42.0-52.0); IMM GRAN# 0.05 X1000 (0.0-0.04); IMM GRAN% 0.4 % (0.0-0.5); LYMPH# 2.29 X1000 (1.2-3.4); LYMPH% 19.8 % (20.5-51.1); MCHC 31.1 g/dL (33-37); MCV 90.2 FL (81-99); MONO% 5.2 % (1.7-9.3); MPV 10.4 FL (7.4-10.4); NEUT# 8.34 X1000 (1.4-6.5); NEUT% 72.1 % (42.2-75.2); PLT 219 X1000 (130-400); RBC 4.28 XMIL (4.7-6.1); RDW 14.9 % (11.5-14.5); WBC 11.56 X1000 (4.8-10.8)
[2019-09-26 04:49] LABS: INR 1.08; PROTIME 14.1 Seconds (11.0-16.0)
[2019-09-26 04:50] LABS: PTT 28.1 Seconds (22.3-41.8)
[2019-09-26 04:54] LABS: AGAP 11; ALB/GLOB RATIO 1.2; ALBUMIN 3.7 g/dL (3.5-5.0); ALKALINE PHOSPHATASE 118 U/L (32-122); BUN 8 mg/dL (8-22); CALCIUM 8.8 mg/dL (8.8-10.2); CHLORIDE 104 mmol/L (98-107); CK PROFILE 201 U/L (24-204); COSMO 290; CREATININE 0.8 mg/dL (0.7-1.2); ESTIMATED GFR > 60; GLUCOSE 192 mg/dL (70-104); GOT 22 U/L (10-34); GPT 21 U/L (10-44); SODIUM 144 mmol/L (136-145); TCO2 29 mmol/L (25-35); TOTAL BILIRUBIN 0.37 mg/dL (0.20-1.00); TOTAL PROTEIN 6.7 g/dL (6.3-8.3)
--- NOTE | 2019-09-26 05:06 | EKG Report ---
Test Performed on : 09/26/2019 04:36:41 AM Test Reason : SOB Blood Pressure : / mmHG Vent. Rate : 083 BPM Atrial Rate : 083 BPM P-R Int : 204 ms QRS Dur : 176 ms QT Int : 456 ms P-R-T Axes : 029 -10 124 degrees QTc Int : 535 ms Normal sinus rhythm. Left bundle branch block Abnormal ECG When compared with ECG of 19-AUG-2019 15:14, (Unconfirmed) premature ventricular complexes. are no longer present Left bundle branch block has replaced Incomplete left bundle branch block Unconfirmed Result
[2019-09-26 06:52] LABS: URINE SOURCE CATH
[2019-09-26 07:47] LABS: BILIRUBIN URINE NEGATIVE (NEGATIVE); BLOOD URINE TRACE (NEGATIVE); COLOR YELLOW; GLUCOSE URINE NEGATIVE (NEGATIVE); KETONE URINE NEGATIVE (NEGATIVE); LEUKOCYTES URINE NEGATIVE (NEGATIVE); NITRITE URINE NEGATIVE (NEGATIVE); PH URINE 5.5; PROTEIN URINE 30 mg/dL (NEGATIVE); SP GRAVITY URINE 1.017; TURBIDITY URINE CLEAR (CLEAR); UROBILINOGEN URINE NORMAL (NORMAL)
[2019-09-26 07:49] LABS: UR EPITHELIAL CELLS >10 /HPF (<10); URINE BACTERIA NEGATIVE /HPF; URINE RBC <10 /HPF (<10)
--- NOTE | 2019-09-26 08:10 | Diag Imaging Result Doc PS360 ---
EXAM: CHEST-1 VIEW INDICATION: sepsis TECHNIQUE: One view COMPARISON: 08/19/2019 FINDINGS: Inspiration is suboptimal. There is stable elevation of the right hemidiaphragm. The central vasculature appears mildly prominent suggesting mild pulmonary venous congestion. There is mild atelectasis +/- infiltrate at the medial lung bases. There is no discrete pleural fluid collection or pneumothorax. Cardiac silhouette is borderline prominent but stable. IMPRESSION: Suggestion of pulmonary venous congestion and mild bibasilar atelectasis +/- infiltrate. Electronically signed by Bryan Boone 09/26/2019 8:08 AM
--- NOTE | 2019-09-26 11:39 | HISTORY AND PHYSICAL ---
CHIEF COMPLAINT: Difficulty breathing. PRESENT ILLNESS: The patient is a 64-year-old, white male who said he was coming to my office soon to establish himself but had not done it yet. Started about 10 o'clock last night with some shortness of breath and then came to the emergency room about 4 a.m. Has not had this before. Though he has been on Lasix and isosorbide in the past, he says he has had no heart problems. He has had a cough. He said he was feeling fine until he had a colonoscopy or an EGD, I am not sure which, possibly both, last . He felt fine after he had the procedure. Denies any foreign travel. Has had no recent chemotherapy. He is diabetic. Past history includes a left knee replacement and gallbladder surgery. He has had broken ribs in the past. SOCIAL HISTORY: He does not use alcohol. HOME MEDICATIONS: Include Lipitor 40 mg at bedtime, Zyloprim 300 mg daily, carvedilol 25 mg p.o. b.i.d., vitamin D with unknown dosage (one orally q.7 days - these are usually in 50,000 international units), Pepcid 20 mg p.o. b.i.d., Lasix 20 mg p.o. p.r.n., isosorbide 30 mg p.o. q.a.m., lisinopril 20 mg p.o. b.i.d., metformin 1000 mg p.o. q.a.m., potassium chloride 10 mEq p.o. q.a.m., Seroquel 25 mg p.o. at bedtime, Zoloft 50 mg p.o. b.i.d., tamsulosin 0.4 mg at bedtime, and Zofran 4 mg p.r.n. nausea. REVIEW OF SYSTEMS: Neurological: Denies headaches, seizures, visual problems, hearing problems other than his chronic hearing problems and he wears hearing aids bilaterally. Pulmonary: Was very short of breath when he first came in and had wheezing. Was given a breathing treatment. He is feeling better now. There is no wheezing. Cardiovascular: Denies chest pain or heart palpitations. Says he does not have any heart disease, yet he is on medications that would indicate that he might. GI: Denies hematochezia, hematemesis, melena, constipation, diarrhea. Apparently has some GERD that he takes Pepcid for. : Denies any difficulty with urination or sexual function. Endocrine: Does have diabetes. PHYSICAL EXAMINATION: VITAL SIGNS: Blood pressure is 166/90, respirations 28, pulse 86 and regular, temperature 97.8 degrees Fahrenheit. HEENT: Normocephalic. EOMs intact. PERRLA. Throat clear. LUNGS: Sound clear to auscultation and percussion without rhonchi or wheezes. HEART: Regular rate and rhythm without gallops, or friction rubs.there is a II/ murmur over the aortic and mitral areas. ABDOMEN: Soft. Active bowel sounds. No organomegaly or tenderness. NEUROLOGICAL EXAMINATION: Cranial nerves 2-12 intact grossly. Sensory and motor intact. Reflexes 1+ all. DIAGNOSTIC DATA: Chest x-ray shows either pulmonary edema or infiltrates and atelectasis in the bases bilaterally. PLAN: We will admit, start on IV antibiotics. We will control any bronchospasm. Urine did show 10 to 20 WBCs so it is possible that he also has a urinary tract infection. Await blood cultures and urine cultures. FINAL DIAGNOSIS: Pneumonia. SECONDARY DIAGNOSES: 1. Diabetes. 2. Hypertension. 3. Also possibly has a urinary tract infection. cc: Alex Peace Jr, MD MTDBenson
[2019-09-26] MEDS: DUONEB (A & A) INH SCH ×3 (12:04→19:56)
[2019-09-26] MEDS: ROCEPHIN 1 GM in NS 50 ML IV SCH ×2 (12:24→20:22)
[2019-09-26] MEDS ORDERED: ZOFRAN PO PRN (14:06)
[2019-09-26] MEDS: HUMULIN R SUBQ SCH ×2 (18:35→20:22)
[2019-09-26] MEDS: NORVASC PO SCH (18:37)
[2019-09-26] MEDS: COREG PO SCH (20:21)
[2019-09-26] MEDS: PEPCID PO SCH (20:21)
[2019-09-26] MEDS: FLOMAX PO SCH (20:21)
[2019-09-26] MEDS: ZOLOFT PO SCH (20:21)
[2019-09-26] MEDS: SEROQUEL PO SCH (20:21)
[2019-09-26] MEDS: LIPITOR PO SCH (20:22)
[2019-09-26] MEDS: PRINIVIL PO SCH (20:22)
[2019-09-27] MEDS: DUONEB (A & A) INH SCH ×5 (00:14→19:43)
--- NOTE | 2019-09-27 04:17 | HISTORY AND PHYSICAL ---
ADDENDUM/CORRECTION REPORT: PHYSICAL EXAMINATION: HEART: Heart was regular rate and rhythm without gallops or friction rubs. He does have a 2/6 systolic murmur over the aortic and mitral areas. Also, it should be noted that the patient has a past history of coronary artery disease. He had a heart catheterization some years ago that showed a 50% blockage of the LAD. The patient may not be completely aware of this. When I asked him if he had any heart disease, he said no. I will explain this to him. He has been on medication for this. His last echocardiogram was done a year ago and it looked normal except for moderate aortic stenosis and mild concentric left hypertrophy with an ejection fraction of at least 60% and moderate left atrial enlargement. He had a total calcium score of 1423.7. Extensive plaque burden with a high likelihood of at least one significant coronary stenosis. That is why they did the heart catheterization. We will follow this along. cc: Alex Peace Jr, MD
--- NOTE | 2019-09-27 06:47 | Diag Imaging Result Doc PS360 ---
CHEST-PORTABLE - 09/27/2019 INDICATION: pneumonia COMPARISON: 09/26/2019 FINDINGS: Stable right hemidiaphragm elevation. There is mild cardiomegaly. There has been decrease in the basilar infiltrates/pulmonary edema. No substantial infiltrates. No pneumothorax or pleural effusion. IMPRESSION: Resolution of the infiltrates/edema in the lung bases. Electronically signed by Navdeep Prabhakar 09/27/2019 6:45 AM
[2019-09-27] MEDS: HUMULIN R SUBQ SCH ×3 (07:39→16:11)
[2019-09-27 07:48] LABS: BASO# 0.03 X1000 (0.0-0.2); BASO% 0.3 % (0.0-0.8); EOS# 0.19 X1000 (0.0-0.7); EOS% 1.6 % (0.0-10.0); HEMATOCRIT 36.5 % (42.0-52.0); HEMOGLOBIN 11.3 g/dL (14.0-18.0); IMM GRAN# 0.02 X1000 (0.0-0.04); IMM GRAN% 0.2 % (0.0-0.5); MCV 90.6 FL (81-99); MONO# 0.82 X1000 (0.11-0.59); MONO% 7.1 % (1.7-9.3); MPV 10.3 FL (7.4-10.4); NEUT# 7.47 X1000 (1.4-6.5); NEUT% 64.8 % (42.2-75.2); PLT 210 X1000 (130-400); RBC 4.03 XMIL (4.7-6.1); WBC 11.53 X1000 (4.8-10.8)
[2019-09-27 08:19] LABS: AGAP 11; BUN 8 mg/dL (8-22); CALCIUM 8.7 mg/dL (8.8-10.2); CHLORIDE 103 mmol/L (98-107); COSMO 285; CREATININE 0.7 mg/dL (0.7-1.2); ESTIMATED GFR > 60; GLUCOSE 125 mg/dL (70-104); POTASSIUM 3.5 mmol/L (3.5-5.1); SODIUM 143 mmol/L (136-145); TCO2 29 mmol/L (25-35)
--- NOTE | 2019-09-27 09:38 | PROGRESS NOTE ---
DATE: 09/27/2019 SUBJECTIVE: The patient says he feels a little bit better. It turns out that he does have some valvular heart disease, showing moderate aortic stenosis. His last echocardiogram was a little over a year ago, which shows some mild concentric left hypertrophy with ejection fraction of 60% and moderate aortic stenosis with trace aortic regurgitation. His chest x-ray today was clear. Whether this was pneumonia or whether there was pulmonary edema is unclear at this point. He has had a cough and had elevated white count and was continued to be treated as an infection, but we will get an echocardiogram. OBJECTIVE: Vital Signs: Blood pressure 164/83, respirations 18, pulse 43, but was earlier 77 and 76, actually wonder if this 43 was erroneous. Temperature 98.4 degrees. HEENT: Normocephalic. EOMS intact. PERRLA. Throat clear. Lungs: Clear to auscultation and percussion without rhonchi, rales, or wheezes. Heart: Regular rate and rhythm with a 2/6 systolic murmur over the aortic and mitral areas with no gallops or friction rubs. Abdomen: Soft. Active bowel sounds. No organomegaly or tenderness. Neurological: Intact grossly. LABORATORY DATA: White count still overall 11,000. The patient has been started back on home medications including his furosemide 20 mg daily. He is back on his metformin for his diabetes. To further define this, we will go ahead and get an echocardiogram. ASSESSMENT: 1. Suggestion of pulmonary venous congestion and mild basilar atelectasis plus or minus infiltrate. Now appears to be cleared. I felt like this might have been pneumonia because of his bronchospasm and cough with the fairly sudden onset and elevated white count. May still be an infection, but makes me wonder about whether there could be some congestive heart failure or problems with his valve. 2. Diabetes mellitus. 3. Intellectual deficit. PLAN: We will get an echocardiogram. Continue treatment. cc: Alex Peace Jr, MD
[2019-09-27] MEDS: ROCEPHIN 1 GM in NS 50 ML IV SCH ×2 (10:00→20:00)
[2019-09-27] MEDS: ZOLOFT PO SCH ×2 (10:01→20:01)
[2019-09-27] MEDS: COREG PO SCH ×2 (10:01→20:01)
[2019-09-27] MEDS: ZYLOPRIM PO SCH (10:01)
[2019-09-27] MEDS: LASIX PO SCH (10:01)
[2019-09-27] MEDS: PEPCID PO SCH ×2 (10:01→20:02)
[2019-09-27] MEDS: IMDUR PO SCH (10:01)
[2019-09-27] MEDS: PRINIVIL PO SCH ×2 (10:01→20:01)
[2019-09-27] MEDS: GLUCOPHAGE PO SCH (10:02)
[2019-09-27] MEDS: KLOR-CON PO SCH (10:02)
[2019-09-27] MEDS: NORVASC PO SCH (10:02)
--- NOTE | 2019-09-27 16:03 | ECHO REPORT ---
ORDER DATE: 09/27/2019 ECHOCARDIOGRAPHIC MEASUREMENTS: 1. Interventricular septum 1.2. 2. Left ventricular posterior wall 1.1. 3. Diastolic diameter 5.9. 4. Left atrium 4.8 with 3.3. SUMMARY OF 2-DIMENSIONAL IMAGIN. Technically suboptimal study. Poor acoustic window. Optison was used to assess left ventricular systolic function. 2. Normal left ventricular cavity size. Concentric left ventricular hypertrophy. Estimated ejection fraction of 60%. 3. Mitral valve was normal. 4. Tricuspid valve was normal. Suboptimal study. Cannot comment on the diastolic function. 5. There is mild mitral regurgitation. 6. Mild tricuspid regurgitation. Peak velocity across the tricuspid valve was 2.6 m/sec. 7. Pulmonary artery systolic pressure of 38 mmHg. 8. Aortic valve leaflets were trileaflet. The sclerosed by planimetry aortic valve area was 1.4 sq cm. Peak gradient across the aortic valve was 2.9 m/sec with a mean gradient of 20 mmHg. 9. Aortic valve area by VTI of 1.2 square cm. There is mild aortic stenosis. There is no aortic regurgitation. 10. There is no pericardial effusion or obvious intracardiac mass or thrombus. cc: MD Alex Warren Jr, MD MTDD
[2019-09-27] MEDS: FLOMAX PO SCH (20:01)
[2019-09-27] MEDS: LIPITOR PO SCH (20:02)
[2019-09-27] MEDS: SEROQUEL PO SCH (20:02)
[2019-09-28] MEDS: HUMULIN R SUBQ SCH ×2 (00:01→06:30)
[2019-09-28] MEDS: DUONEB (A & A) INH SCH (03:22)
[2019-09-28 07:22] LABS: BASO# 0.02 X1000 (0.0-0.2); BASO% 0.2 % (0.0-0.8); EOS# 0.25 X1000 (0.0-0.7); EOS% 2.2 % (0.0-10.0); HEMATOCRIT 35.3 % (42.0-52.0); HEMOGLOBIN 10.8 g/dL (14.0-18.0); MCHC 30.6 g/dL (33-37); MCV 91.5 FL (81-99); MONO# 0.67 X1000 (0.11-0.59); MPV 10.3 FL (7.4-10.4); NEUT# 7.46 X1000 (1.4-6.5); NEUT% 66.6 % (42.2-75.2); PLT 208 X1000 (130-400); RBC 3.86 XMIL (4.7-6.1)
[2019-09-28 07:44] LABS: AGAP 9; BUN 9 mg/dL (8-22); CALCIUM 8.5 mg/dL (8.8-10.2); CHLORIDE 98 mmol/L (98-107); COSMO 277; CREATININE 0.6 mg/dL (0.7-1.2); ESTIMATED GFR > 60; GLUCOSE 117 mg/dL (70-104); POTASSIUM 3.4 mmol/L (3.5-5.1); SODIUM 139 mmol/L (136-145); TCO2 32 mmol/L (25-35)
[2019-09-28 07:47] VITALS: BP 144/73
[2019-09-28] MEDS: PRINIVIL PO SCH (08:03)
[2019-09-28] MEDS: LASIX PO SCH (08:03)
[2019-09-28] MEDS: NORVASC PO SCH (08:03)
[2019-09-28] MEDS: ZYLOPRIM PO SCH (08:03)
[2019-09-28] MEDS: ZOLOFT PO SCH (08:03)
[2019-09-28] MEDS: GLUCOPHAGE PO SCH (08:03)
[2019-09-28] MEDS: IMDUR PO SCH (08:03)
[2019-09-28] MEDS: COREG PO SCH (08:03)
[2019-09-28] MEDS: PEPCID PO SCH (08:03)
[2019-09-28] MEDS: KLOR-CON PO SCH (08:03)
[2019-09-28] MEDS: ROCEPHIN 1 GM in NS 50 ML IV SCH (08:04)
--- NOTE | 2019-09-28 09:24 | DISCHARGE SUMMARY ---
ADMISSION DATE: 09/26/2019 DISCHARGE DATE: 09/28/2019 FINAL DIAGNOSES: 1. Bilateral lower lobe pneumonia. 2. Pulmonary venous congestion. SECONDARY DIAGNOSES: 1. Hyperlipidemia. 2. Hypertension. 3. Gouty arthritis. 4. Diabetes mellitus. 5. Hypokalemia. 6. Intellectual deficit. 7. Vitamin D deficiency. The patient will be discharged on his home medications plus Cefzil 500 mg p.o. b.i.d. for 10 days and an albuterol MDI 2 puffs every 4 hours as needed for wheezing. PRESENT ILLNESS: The patient is a 64-year-old white male I saw for the first time in the emergency room, who wants to come into my practice, with what look like bilateral lower lobe pneumonia with elevated white count. Chest x-ray was read as atelectasis in the bases versus infiltrates and pulmonary venous congestion. He was given some Lasix and started on IV antibiotics, but the second x-ray, chest x-ray was now clear. He had come in with wheezing and shortness of breath. He does have some heart disease with coronary artery disease, has some aortic valve stenosis, but has an ejection fraction of 60% on his echocardiogram. He seems to be doing well. He is having no shortness of breath at this time after initial treatment with breathing treatments. OBJECTIVE: Vital Signs: Temperature 98.2 degrees Fahrenheit, respirations 18, pulse 67, blood pressure 144/73. HEENT: Normocephalic. EOMS intact. PERRLA. Throat clear. Lungs: Clear to auscultation and percussion without rhonchi, rales, or wheezes. Heart: Regular rate and rhythm without gallops or friction rubs. He does have a 2/6 systolic murmur over the aortic and mitral areas. Abdomen: Soft, active bowel sounds. No organomegaly or tenderness. Neurological Exam: Intact grossly. PLAN: We will discharge with Cefzil 500 mg p.o. b.i.d. for 10 days and albuterol inhaler. We will see back in my office within a week. He will continue his home medications including his Lasix and his potassium. cc: Alex Peace Jr, MD
[2019-10-03] MEDS ORDERED: VITAMIN D PO SCH (09:00)
== END 2019-09-28 10:05 | disposition home or self-care (01) | DRG 194 ==
LOC: SUPCPDRO → ED 03:53 → EDIPHOLD 11:30 → 3N 13:55
PROVIDERS: ADMIT Emergency Medicine; ATTEND Emergency Medicine